=== PATIENT | female | born 1975 | race Caucasian/White ===

== ENCOUNTER → 2017-11-16 | Outpatient (CLI) | payer OTHER | END | disposition home or self-care (01) | LOC: C.LABMFLN 07:53 | PROVIDERS: ATTEND Internal Medicine Endocrinology, Diabetes & Metabolism | DX: R53.83 Other fatigue (principal); R23.2 Flushing; R61 Generalized hyperhidrosis ==

== ENCOUNTER → 2017-11-21 | Outpatient (CLI) | payer OTHER | END | disposition home or self-care (01) | LOC: C.LABMFLN 07:51 | PROVIDERS: ATTEND Internal Medicine Endocrinology, Diabetes & Metabolism | DX: R61 Generalized hyperhidrosis (principal) ==

== ENCOUNTER → 2018-05-31 | Outpatient (CLI) | payer OTHER ==
[2018-05-31 19:09] LABS: FOLLICLE STIMULAT HORMONE 9.61 IU/L
== END | disposition home or self-care (01) ==
LOC: C.LABMFLN 15:41
PROVIDERS: ATTEND Physician Assistant
DX: R53.83 Other fatigue (principal); E03.8 Other specified hypothyroidism